=== PATIENT | male | born 1995 ===

== ENCOUNTER 2017-03-19 23:55 | Emergency (ER) ==
[~2017-03-19] VITALS: Ht 180.3 cm; Wt 80.9 kg
== END 2017-03-20 03:23 | disposition left against medical advice (07) ==
LOC: M ED 03-20 03:22
DX: S01.81XA Laceration without foreign body of other part of head, initial encounter (principal); X58.XXXA Exposure to other specified factors, initial encounter; Y92.89 Other specified places as the place of occurrence of the external cause; Y93.89 Activity, other specified; Y99.8 Other external cause status; Z53.29 Procedure and treatment not carried out because of patient's decision for other reasons